=== PATIENT | male | born 1935 | race Caucasian/White ===

== ENCOUNTER 2018-07-28 11:36 | Emergency (ER) | payer MEDICARE ==
--- NOTE | 2018-07-28 13:31 | ED ---
Laceration/Wound HPI - HPI Summary HPI Summary: This patient is a 83 year old male presenting to [facility] accompanied by with a chief complaint of head laceration following mechanical fall 1 hour ago. Patient states that he was at home when he slipped on the hardwood floor of his house while wearing socks and hit his head against the floor. Patient denies any LOC. In ED, patient presents with a laceration on the right side of his forehead, just above his eyebrow. The pain is rated 0/10 in severity. Symptoms aggravated by nothing. Symptoms alleviated by nothing. Patient denies neck pain. Patient states that he is not on blood thinners. - History of Current Complaint Stated Complaint: FACE INJURY PER Time Seen by Provider: 07/28/18 13:13 Mechanism of Injury: Sharp/Blunt Trauma - fall Onset/Duration: Sudden Onset, Lasting Hours, Still Present Aggravating: Nothing Alleviating: Nothing Current Severity: Mild Pain Intensity: 0 Pain Scale Used: 0-10 Numeric Associated Signs & Symptoms: Negative - neck pain, Pain - Allergy/Home Medications Allergies/Adverse Reactions: Allergies Allergy/AdvReac Type Severity Reaction Status Date / Time No Known Allergies Allergy Verified 07/28/18 11:42 Home Medications: Home Medications Atorvastatin* [Lipitor*] 10 mg PO DAILY 07/28/18 [History Confirmed 07/28/18] FLUoxetine CAP* [PROzac CAP*] 20 mg PO DAILY 07/28/18 [History Confirmed ] Irbesartan (NF) [Avapro (NF)] 300 mg PO DAILY 07/28/18 [History Confirmed ] Levothyroxine TAB* [Synthroid TAB*] 50 mcg PO QAM 07/28/18 [History Confirmed ] Metoprolol Succinate XL TAB* [Toprol XL TAB*] 200 mg PO DAILY 07/28/18 [History Confirmed 07/28/18] Modafinil TAB* [Provigil TAB*] 50 - 100 mg PO BID PRN 07/28/18 [History Confirmed 07/28/18] Potassium Chloride [Klor-Con 8] 8 meq PO DAILY 07/28/18 [History Confirmed 07/28] SitaGLIPtin (NF) [Januvia (NF)] 100 mg PO DAILY 07/28/18 [History Confirmed ] Venlafaxine EXT RELEASE CAP* [Effexor Xr CAP*] 75 mg PO DAILY 07/28/18 [History Confirmed 07/28/18] metFORMIN* [Glucophage 1000 MG TAB *] 1,000 mg PO BID 07/28/18 [History Confirmed 07/28/18] PMH/Surg Hx/FS Hx/Imm Hx Previously Healthy: Yes Opthamlomology History: Denies: Hx Legally Blind EENT History: Denies: Hx Deafness Infectious Disease History: No Infectious Disease History: Denies: Traveled Outside the [place] in Last 30 Days - Family History Known Family History: Positive: Hypertension - Social History Lives: With Family Alcohol Use: None Hx Substance Use: No Substance Use Type: Reports: None Hx Tobacco Use: No Smoking Status (MU): Never Smoked Tobacco Review of Systems Negative: Fever Positive: Other - laceration to right forehead Neurological: Negative - neck pain All Other Systems Reviewed And Are Negative: Yes Physical Exam - Summary Physical Exam Summary: VITAL SIGNS: Reviewed. GENERAL: Patient is a well-developed and nourished male who is lying comfortable in the stretcher. Patient is not in any acute respiratory distress. HEAD AND FACE: No signs of trauma. No ecchymosis, hematomas or skull depressions. No sinus tenderness. EYES: PERRLA, EOMI x 2, No injected conjunctiva, no nystagmus. EARS: Hearing grossly intact. Ear canals and tympanic membranes are within normal limits. MOUTH: Oropharynx within normal limits. NECK: Supple, trachea is midline, no adenopathy, no JVD, no carotid bruit, no c- spine tenderness, neck with full ROM. CHEST: Symmetric, no tenderness at palpation LUNGS: Clear to auscultation bilaterally. No wheezing or crackles. CVS: Regular rate and rhythm, S1 and S2 present, no murmurs or gallops appreciated. ABDOMEN: Soft, non-tender. No signs of distention. No rebound no guarding, and no masses palpated. Bowel sounds are normal. EXTREMITIES: FROM in all major joints, no edema, no cyanosis or clubbing. NEURO: Alert and oriented x 3. No acute neurological deficits. Speech is normal and follows commands.. No C-Spine tenderness SKIN: Dry and warm. Laceration on the right side of the forehead Triage Information Reviewed: Yes Vital Signs On Initial Exam: Initial Vitals Temp Pulse Resp BP Pulse Ox 97.4 F 66 16 196/81 92 07/28/18 11:39 07/28/18 11:39 07/28/18 11:39 07/28/18 11:39 07/28/18 11:39 Vital Signs Reviewed: Yes - [place] Coma Scale Best Eye Response: 4 - Spontaneous Best Motor Response: 6 - Obeys Commands Best Verbal Response: 5 - Oriented Coma Scale Total: 15 Procedures - Laceration/Wound Repair 1 Location: head - forehead Description: Linear Length, Depth and Shape: 3 cm Suture Type: Nylon - 5-0 Number of Sutures: 9 Diagnostics - Vital Signs Vital Signs Temp Pulse Resp BP Pulse Ox 07/28/18 13:10 67 94 07/28/18 13:09 75 179/80 91 07/28/18 11:39 97.4 F 66 16 196/81 92 - Laboratory Lab Statement: Any lab studies that have been ordered have been reviewed, and results considered in the medical decision making process. - CT Brain CT CT Interpretation Completed By: Radiologist Summary of CT Findings: No acute intracranial pathology. Chronic small vessel ischemic changes. ED physician has reviewed this report. Maxillofacial CT CT Interpretation Completed By: Radiologist Summary of CT Findings: No facial fracture. ED physician has reviewed this report. CT Brain CT Interpretation Completed By: Radiologist Summary of CT Findings: No acute intracranial pathology. Chronic small vessel ischemic changes. ED physician has reviewed this report. Re-Evaluation - Re-Evaluation First Eval Re-Evaluation Time: 15:00 Change: Improved Comment: I performed a laceration repair on the patient. He tolerated the procedure well. He will be discharged home with instructions for suture removal. Laceration Repair Course/Dx - Course Assessment/Plan: This patient is an 83 year old male presenting to [facility] accompanied by with a chief complaint of head laceration following mechanical fall 1 hour ago. Patient states that he was at home when he slipped on the hardwood floor of his house while wearing socks and hit his head against the floor. Patient denies any LOC. In ED, patient presents with a laceration on the right side of his forehead, just above his eyebrow. The pain is rated 0/10 in severity. Symptoms aggravated by nothing. Symptoms alleviated by nothing. Patient denies neck pain. Patient states that he is not on blood thinners. Head CT impression: no acute intracranial pathology. Facial CT impression: No acute fracture dislocation. The laceration was repaired. Please see note. The patient was given tetanus booster. The patient will be discharged home with follow-up with primary care physician. Patient is hemodynamically stable alert oriented 3. - Clinical Impression Provider Diagnoses: Facial contusion, Laceration Discharge - Sign-Out/Discharge Documenting (check all that apply): Patient Departure - Patient will be discharged home. Patient Received Moderate/Deep Sedation with Procedure: No - Discharge Plan Condition: Good Disposition: HOME Patient Education Materials: Laceration (ED), Facial Contusion (ED) Referrals: Marlon Martin MD [Primary Care Provider] - 7 Days Additional Instructions: Follow up with your primary physicin in 7-10 days for suture removal. RETURN TO THE EMERGENCY DEPARTMENT FOR ANY NEW OR WORSENING SYMPTOMS. - Billing Disposition and Condition Condition: GOOD Disposition: Home - Attestation Statements Document Initiated by Javier: Yes Documenting Scribe: Dave Coleman Provider For Whom Javier is Documenting (Include Credential): David Pleitez MD Scribe Attestation: Dave Spear scribed for David Pleitez MD on 07/28/18 at 2134. Scribe Documentation Reviewed: Yes Provider Attestation: The documentation as recorded by the Dave alba accurately reflects the service I personally performed and the decisions made by David bright MD Status of Scribe Document: Viewed
[2018-07-28] MEDS ORDERED: Tetan/Diph/Pertus SYR(Tdap)* 0.5 ML SYR(BOOSTRIX) use SYR IM ONE (15:14)
[2018-07-28 15:39] VITALS: BP 120/84
== END 2018-07-28 15:38 | disposition home or self-care (01) ==
LOC: ED 11:36
DX: S01.81XA Laceration without foreign body of other part of head, initial encounter (principal); W01.0XXA Fall on same level from slipping, tripping and stumbling without subsequent striking against object, initial encounter; Y93.01 Activity, walking, marching and hiking; Y92.009 Unspecified place in unspecified non-institutional (private) residence as the place of occurrence of the external cause
CPT/HCPCS: 12013; 70450; 70486; 90471; 90715; 99283

== ENCOUNTER 2020-01-03 11:47 | Observation (INO) ==
[2020-01-03 13:10] LABS: ABS Eosinophils 0.1 10^3/ul (0-0.6); ABS Lymphocytes 2.7 10^3/ul (1.0-4.8); ABS Monocytes 0.7 10^3/ul (0-0.8); ABS Neutrophils 5.8 10^3/ul (1.5-7.7); Eosinophil % 0.7 %; Hematocrit 51 % (42-52); Hemoglobin 17.1 g/dL (14.0-18.0); Lymphocyte % 29.2 %; Mean Corpuscular HGB Conc 34 g/dL (31-36); Mean Corpuscular Hemoglobin 31 pg (27-31); Mean Corpuscular Volume 91 fL (80-94); Mean Platelet Volume 8.1 fL (7.4-10.4); Nucleated Red Blood Cells % 0.1; Platelet Count 251 10^3/uL (150-450); Red Blood Count 5.58 10^6 /uL (4.18-5.48); Red Cell Distribution Width 15 % (10-15); White Blood Count 9.2 10^3/uL (3.5-10.8)
[2020-01-03 13:27] LABS: Albumin 3.9 g/dL (3.2-5.2); Albumin/Globulin Ratio 1.4 (1-3); Calcium 8.8 mg/dL (8.6-10.3); EGFR African American 79.2 (>60); EGFR Non-African American 65.5 (>60); Globulin 2.7 g/dL (2-4); Total Bilirubin 1.4 mg/dL (0.2-1.0); Total Protein 6.6 g/dL (6.4-8.9)
[2020-01-03 13:28] LABS: Troponin I 0.01 ng/mL (<0.03)
[2020-01-03 13:58] LABS: TSH Ultra Thyroid Stim Horm 3.34 mcIU/mL (0.34-5.60)
[2020-01-03 14:00] LABS: Free T4 0.96 ng/dL (0.61-1.12)
[2020-01-03] MEDS ORDERED: Iodixanol (CONTRAST) 320 MG/ML 100 ML SDV IV ONE (14:56)
[2020-01-03] MEDS ORDERED: Ondansetron 4 mg VIAL 2 MG/ML 2 ml VIAL IV PRN (15:08)
[2020-01-03] MEDS ORDERED: Senna TAB 8.6 mg TAB PO PRN (15:08)
[2020-01-03] MEDS ORDERED: Perflutren Lipid Microsphere 3 ML VIAL ONE (16:17)
[2020-01-03] MEDS: Enoxaparin 40 MG/0.4 ML SYR SUBCUT SCH (17:26)
[2020-01-03] MEDS ORDERED: Dextrose 50% Syringe 50 ml 25 GM/50 ML SYRINGE IV PUSH PRN (17:43)
[2020-01-04 06:42] LABS: ABS Eosinophils 0.1 10^3/ul (0-0.6); ABS Lymphocytes 3.4 10^3/ul (1.0-4.8); ABS Monocytes 0.8 10^3/ul (0-0.8); ABS Neutrophils 5.6 10^3/ul (1.5-7.7); Eosinophil % 1.3 %; Hematocrit 49 % (42-52); Hemoglobin 16.9 g/dL (14.0-18.0); Lymphocyte % 34.2 %; Mean Corpuscular HGB Conc 35 g/dL (31-36); Mean Corpuscular Hemoglobin 32 pg (27-31); Mean Corpuscular Volume 92 fL (80-94); Mean Platelet Volume 8.2 fL (7.4-10.4); Nucleated Red Blood Cells % 0.3; Platelet Count 241 10^3/uL (150-450); Red Blood Count 5.35 10^6 /uL (4.18-5.48); Red Cell Distribution Width 15 % (10-15)
[2020-01-04 06:50] LABS: Albumin 3.7 g/dL (3.2-5.2); Albumin/Globulin Ratio 1.4 (1-3); Calcium 8.6 mg/dL (8.6-10.3); EGFR African American 60.2 (>60); EGFR Non-African American 49.7 (>60); Globulin 2.6 g/dL (2-4); HDL Cholesterol 38.1 mg/dL; Potassium 4.2 mmol/L (3.5-5.0); Total Bilirubin 1.6 mg/dL (0.2-1.0); Total Protein 6.3 g/dL (6.4-8.9)
[2020-01-04] MEDS ORDERED: Cholecalciferol (VIT D3) 1,000 unit TAB PO SCH (09:00)
[2020-01-04] MEDS ORDERED: Venlafaxine XR 75 mg PO SCH (09:00)
[2020-01-04] MEDS ORDERED: Metoprolol Succinate XL 200 mg TAB PO SCH (09:00)
[2020-01-04] MEDS ORDERED: Potassium Chlor 10 meq TAB PO SCH (09:00)
[2020-01-04 15:58] VITALS: BP 151/57
[2020-01-04] MEDS: Enoxaparin 40 MG/0.4 ML SYR SUBCUT SCH (16:57)
== END 2020-01-04 17:11 | disposition home or self-care (01) ==
LOC: ED 11:47 → MEDTELE 11:47
PROVIDERS: ADMIT Internal Medicine; ATTEND Internal Medicine

== ENCOUNTER 2020-12-24 11:24 | Inpatient (IN) ==
[2020-12-24 12:43] LABS: Hematocrit 48 % (42-52); Mean Corpuscular HGB Conc 33 g/dL (31-36); Mean Corpuscular Hemoglobin 31 pg (27-31); Mean Corpuscular Volume 94 fL (80-94); Platelet Count 272 10^3/uL (150-450); Red Blood Count 5.15 10^6 /uL (4.18-5.48); Red Cell Distribution Width 14 % (10-15); White Blood Count 11.7 10^3/uL (3.5-10.8)
[2020-12-24] MEDS ORDERED: Iodixanol (CONTRAST) 320 MG/ML 100 ML SDV IV ONE (12:50)
[2020-12-24 12:55] LABS: Activated Partial Thrombo Time 34.2 seconds (26.0-38.0); INR 0.97 (0.86-1.15)
[2020-12-24 13:07] LABS: ALT 7 U/L (7-52); Albumin 4.4 g/dL (3.2-5.2); Albumin/Globulin Ratio 1.5 (1-3); Alkaline Phosphatase 98 U/L (35-149); Blood Urea Nitrogen 25 mg/dL (6-24); CO2 Carbon Dioxide 29 mmol/L (22-32); Chloride 105 mmol/L (101-111); EGFR Non-African American 65.3 (>60); Globulin 2.9 g/dL (2-4); Glucose 110 mg/dL (70-100); Sodium 139 mmol/L (135-145); Total Protein 7.3 g/dL (6.4-8.9)
[2020-12-24 13:08] LABS: Anion Gap 5 mmol/L (2-11)
[2020-12-24 13:36] LABS: ABS Eosinophils 0.1 10^3/ul (0-0.6); ABS Lymphocytes 4.9 10^3/ul (1.0-4.8); ABS Monocytes 0.8 10^3/ul (0-0.8); Eosinophil % 0.6 %; Lymphocyte % 41.6 %
[2020-12-24] MEDS ORDERED: Dextrose 50% Syringe 50 ml 25 GM/50 ML SYRINGE IV PUSH PRN (16:45)
[2020-12-24 19:10] LABS: Rapid COVID-19 Molecular Undetected (Undetected)
[2020-12-25 05:05] LABS: Hematocrit 47 % (42-52); Hemoglobin 15.8 g/dL (14.0-18.0); Mean Corpuscular HGB Conc 34 g/dL (31-36); Mean Corpuscular Hemoglobin 31 pg (27-31); Mean Corpuscular Volume 93 fL (80-94); Mean Platelet Volume 7.9 fL (7.4-10.4); Platelet Count 253 10^3/uL (150-450); Red Blood Count 5.05 10^6 /uL (4.18-5.48); Red Cell Distribution Width 14 % (10-15); White Blood Count 11.9 10^3/uL (3.5-10.8)
[2020-12-25 05:20] LABS: Calcium 8.9 mg/dL (8.6-10.3); EGFR African American 74.2 (>60); EGFR Non-African American 61.3 (>60); HDL Cholesterol 43.4 mg/dL
[2020-12-25 05:26] LABS: ABS Basophils 0.1 10^3/ul (0-0.2); ABS Eosinophils 0.1 10^3/ul (0-0.6); ABS Lymphocytes 4.8 10^3/ul (1.0-4.8); ABS Monocytes 0.9 10^3/ul (0-0.8); ABS Nucleated RBC 0.1 10^3/ul; Eosinophil % 1.3 %; Lymphocyte % 40.8 %; Nucleated Red Blood Cells % 0.4
[2020-12-25] MEDS: Venlafaxine XR 75 mg PO SCH (08:45)
[2020-12-25] MEDS: Cholecalciferol (VIT D3) 1,000 unit TAB PO SCH (08:45)
[2020-12-26] MEDS: Cholecalciferol (VIT D3) 1,000 unit TAB PO SCH (08:30)
[2020-12-26] MEDS: Venlafaxine XR 75 mg PO SCH (08:31)
[2020-12-26 12:03] VITALS: BP 138/80
== END 2020-12-26 16:30 | disposition home or self-care (01) | DRG 64 ==
LOC: MERGE 11:24 → ED 11:24 → MEDTELE 15:26 → SUATTDRO 15:26 → MED 12-26 12:02
PROVIDERS: ADMIT Internal Medicine; ATTEND Internal Medicine

== ENCOUNTER 2023-04-25 18:02 | Observation (INO) ==
[2023-04-25] MEDS ORDERED: NS 0.9% 1000 ml BAG 1,000 ML IV ONE (19:00)
[2023-04-25 19:18] LABS: Hematocrit 50.4 % (38-53); Hemoglobin 16.6 g/dL (13.2-16.3); Mean Corpuscular Hemoglobin 29.9 pg (27-33); Mean Corpuscular Hgb Conc 32.9 g/dL (31-36); Mean Corpuscular Volume 90.9 fL (80-97); Mean Platelet Volume 8.8 fL (7.5-11.2); Platelet Count 298 10^3/uL (150-450); Red Blood Count 5.54 10^6/uL (4.06-5.63); Red Cell Distribution Width 14.3 % (12-17); White Blood Count 18.1 10^3/uL (3.6-10.2)
[2023-04-25 19:43] LABS: High Sens Troponin Baseline 7 pg/mL (<20)
[2023-04-25 19:49] LABS: ALT 10 U/L (7-52); AST 38 U/L (13-39); Albumin 4.6 g/dL (3.2-5.2); Albumin/Globulin Ratio 1.4 (1-3); Alkaline Phosphatase 107 U/L (35-149); Anion Gap 7 mmol/L (2-16); Blood Urea Nitrogen 25 mg/dL (6-24); C Reactive Protein < 1.00 mg/L (<8.01); CO2 Carbon Dioxide 25 mmol/L (22-32); Chloride 103 mmol/L (101-111); Creatinine, Serum 0.91 mg/dL (0.67-1.17); Globulin 3.2 g/dL (2-4); Glucose 157 mg/dL (70-100); INR 1.12 (0.83-1.13); Phosphorus 3.4 mg/dL (2.5-5.0); Potassium 7.2 mmol/L (3.5-5.0); Sodium 135 mmol/L (135-145); Total Bilirubin 1.2 mg/dL (0.2-1.0); Total Protein 7.8 g/dL (6.4-8.9); eGFR CKD-EPI 82.6 (>60)
[2023-04-25 19:52] LABS: ABS Eosinophils 0.1 10^3/uL (0.0-0.5); ABS Lymphocytes 9.3 10^3/uL (1.0-4.8); ABS Monocytes 0.5 10^3/uL (0.0-1.1); ABS Neutrophils 8.2 10^3/uL (1.5-7.6); ABS Nucleated RBC 0.05 10^3/ul; Eosinophil % 0.3 %; Lymphocyte % 51.4 %; Nucleated Red Blood Cells % 0.3 %/100WBC (0.0-0.8); RBC Morphology Normal (Normal)
[2023-04-25 20:39] LABS: Calcium 9.7 mg/dL (8.6-10.3); Creatinine, Serum 1.01 mg/dL (0.67-1.17); Potassium 4.2 mmol/L (3.5-5.0); eGFR CKD-EPI 72.9 (>60)
[2023-04-25 21:28] LABS: Urine Appearance Clear; Urine Bilirubin Negative (Negative); Urine Blood Negative (Negative); Urine Color Yellow; Urine Glucose 3+(>=500 mg/dL) (Negative); Urine Ketones Trace (Negative); Urine Nitrite Negative (Negative); Urine Protein 1+(30 mg/dL) (Negative); Urine Specific Gravity 1.025 (1.002-1.030); Urine Urobilinogen Negative (Negative)
[2023-04-25 21:33] LABS: Urine Bacteria Absent (Absent); Urine Red Blood Cell Trace(0-2/hpf) (Absent); Urine White Blood Cell Trace(0-5/hpf) (Absent)
[2023-04-26] MEDS ORDERED: Dextrose 50% Syringe 50 ml 25 GM/50 ML SYRINGE IV PUSH PRN (03:03)
[2023-04-26 06:38] LABS: Calcium 8.5 mg/dL (8.6-10.3); Creatinine, Serum 0.89 mg/dL (0.67-1.17)
[2023-04-26] MEDS ORDERED: CMCS:Venlafaxine 25 mg TAB (NF) PO SCH (09:00)
[2023-04-26] MEDS ORDERED: SOLRIAMFETOL 150 MG PO SCH (09:00)
[2023-04-26] MEDS ORDERED: Metoprolol Succinate XL 200 mg TAB PO SCH (09:00)
[2023-04-26 09:04] LABS: Hematocrit 46.7 % (38-53); Hemoglobin 15.3 g/dL (13.2-16.3); Mean Corpuscular Hgb Conc 32.7 g/dL (31-36); Mean Corpuscular Volume 91.8 fL (80-97); Mean Platelet Volume 7.7 fL (7.5-11.2); Platelet Count 229 10^3/uL (150-450); Red Blood Count 5.09 10^6/uL (4.06-5.63); Red Cell Distribution Width 14.2 % (12-17); White Blood Count 16.4 10^3/uL (3.6-10.2)
[2023-04-26 09:51] LABS: ABS Lymphocytes 8.7 10^3/uL (1.0-4.8); ABS Monocytes 0.8 10^3/uL (0.0-1.1); ABS Neutrophils 6.8 10^3/uL (1.5-7.6); ABS Nucleated RBC 0.05 10^3/ul; Eosinophil % 0.3 %; Lymphocyte % 53.3 %; Nucleated Red Blood Cells % 0.3 %/100WBC (0.0-0.8)
[2023-04-26 14:12] VITALS: BP 137/68
== END 2023-04-26 16:44 | disposition home or self-care (01) ==
LOC: EDHOLD 18:02 → ED 18:02 → SUATTDRO 04-26 00:39 → MEDTELE 04-26 10:19
PROVIDERS: ADMIT Internal Medicine; ATTEND Internal Medicine